=== PATIENT | female | born 1990 | race American Indian/Alaskan Native ===

== ENCOUNTER → 2018-04-26 18:19 | Outpatient (CLI) | payer BC, SELFPAY | PROVIDERS: Visit Provider Physician Assistant | DX: R30.0 Dysuria (principal) | CPT/HCPCS: 87077; 87086; 87186 ==

== ENCOUNTER → 2019-03-23 10:23 | Outpatient (CLI) | payer BC, SELFPAY ==
[2019-03-23 10:28] LABS: Bacteria Urine None Seen; RBC Urine None Seen (0-5/HPF)
[2019-03-23 11:36] LABS: Hematocrit 40.5 % (36-46); Hemoglobin 13.2 g/dL (12.0-16.0); Mean Corpuscular HGB Conc 32.7 % (30-36); Mean Corpuscular Hemoglobin 31.6 PG (26-34); Mean Corpuscular Volume 96.7 fL (80-100); Platelet Count 190 X10^3/uL (150-400); Red Blood Cell Count 4.19 X10^6/uL (4.0-5.2); White Blood Cell Count 3.7 X10^3/uL (4.5-11.0)
[2019-03-23 11:52] LABS: Alanine Aminotransferase 16 IU/L (9-52); Albumin 4.2 g/dL (3.5-5.0); Albumin Globulin Ratio 1.5 (1.0-2.8); Alkaline Phosphatase 35 U/L (38-126); Aspartate Aminotransferase 20 IU/L (14-36); BUN Creatinine Ratio 17.1 (6-22); Bilirubin Total 0.4 mg/dL (0.2-1.3); Blood Urea Nitrogen 12 mg/dL (7-17); Calcium 9.1 mg/dL (8.4-10.2); Carbon Dioxide 26 mmol/L (22-32); Chloride 103 mmol/L (98-107); Cholesterol 172 mg/dL (140-199); Estimated Glomerular Filt Rate > 60.0 mL/min (>60); Globulin 2.8 g/dL (1.7-4.1); Glucose 76 mg/dL (70-100); HDL Cholesterol 53 mg/dL (40-60); HEMOLYSIS < 15 (0-50); LDL Cholesterol Calculated 110 mg/dL (<100); Potassium 3.9 mmol/L (3.4-5.1); Sodium 137 mmol/L (137-145); Triglycerides 43 mg/dL (35-150)
[2019-03-23 12:27] LABS: TSH w/ Reflex to FT4 0.78 uIU/mL (0.47-4.68)
[2019-03-23 12:30] LABS: Appearance Urine UA CLEAR; Bilirubin Urine UA NEGATIVE (NEGATIVE); Color Urine UA YELLOW; Glucose Urine UA NEGATIVE (Negative); Ketones Urine UA NEGATIVE (NEGATIVE); Leukocyte Esterase Urine UA NEGATIVE (NEGATIVE); Nitrite Urine UA NEGATIVE (Negative); Occult Blood Urine UA NEGATIVE (Negative); Protein Urine UA NEGATIVE (Negative); Urobilinogen Urine UA 0.2 E.U./dL (0.2)
[2019-03-23 14:30] LABS: Squamous Epithelial Cell Urine 5-10 /HPF (0-5/HPF); WBC Urine 0-1/HPF (0-5/HPF)
== END ==
PROVIDERS: PCP Nurse Practitioner Family; Visit Provider Nurse Practitioner Family
DX: Z00.00 Encounter for general adult medical examination without abnormal findings (principal); N97.9 Female infertility, unspecified; Z13.6 Encounter for screening for cardiovascular disorders
CPT/HCPCS: 36415; 80053; 80061; 81001; 84443; 85027

== ENCOUNTER → 2019-05-03 08:29 | Outpatient (CLI) | payer BC, SELFPAY ==
[2019-05-03 12:22] LABS: Semen 30 min. Liquification? Yes; Sperm Count 30 X10^6mL
[2019-05-03 12:23] LABS: % Recovery 0.02 %; Final Volume 0.5 mL
== END ==
PROVIDERS: PCP Nurse Practitioner Family; Visit Provider Obstetrics & Gynecology
DX: N97.9 Female infertility, unspecified (principal)
CPT/HCPCS: 89261

== ENCOUNTER → 2019-06-21 11:58 | Outpatient (CLI) | payer BC, SELFPAY ==
[2019-07-04 10:24] LABS: Final Volume 0.5 mL; Initial Volume 5 mL; Semen 30 min. Liquification? Yes
== END ==
PROVIDERS: Obstetrics & Gynecology; PCP Nurse Practitioner Family; Visit Provider Nurse Practitioner Family
DX: N89.8 Other specified noninflammatory disorders of vagina (principal)
CPT/HCPCS: 58323; 87210

== ENCOUNTER → 2019-10-24 10:16 | Outpatient (CLI) | payer BC, SELFPAY ==
--- NOTE | 2019-10-24 10:17 | DI.RAD.S_ITS ---
PROCEDURE: HL HYSTEROSAPINGOGRAPHY INDICATIONS: Secondary infertility. COMPARISON: None. FINDINGS: Patient had a documented negative test prior to the study. Following speculum insertion, a balloon-tip catheter was inserted into the cervical canal, and secured by inflating the balloon. Contrast was then injected into the endometrial canal. Uterus: The uterine cavity appears grossly normal in size and morphology. Fallopian tubes: The right fallopian tube fills with contrast, and appear normal in caliber and morphology. There is ready dispersion of contrast into the peritoneal cavity. However, the left fallopian tube is not well-visualized. On early filling images, there is possible visualization of the isthmus and ampullary segment however seen on one view only. There is no definite intraperitoneal free spillage. There is venous extravasation. IMPRESSION: Patent right fallopian tube. Obstructed left fallopian tube Dictated by: Nato Weir M.D. on 10/24/2019 at 12:03 Approved by: Ntao Weir M.D. on 10/24/2019 at 12:07
== END ==
PROVIDERS: PCP Nurse Practitioner Family; Referring Provider Nurse Practitioner Family; Visit Provider Obstetrics & Gynecology
DX: N97.1 Female infertility of tubal origin (principal)
CPT/HCPCS: 58340; 74740

== ENCOUNTER → 2019-11-09 13:44 | Outpatient (CLI) | payer BC, SELFPAY ==
--- NOTE | 2019-11-09 13:45 | DI.US.S_ITS ---
PROCEDURE: US PELVIC COMPLETE INDICATIONS: EVALULATION FOR NORMAL UTERUS AND REPRODUCTIVE ORGANS TECHNIQUE: Real-time scanning was performed of the pelvic organs, with image documentation. Additional endovaginal scanning was necessary due to incomplete visualization of the adnexal and endometrial structures by transabdominal scanning. COMPARISON: [facility], US, US PELVIC COMPLETE, 06/30/2019, 15:52. FINDINGS: Transabdominal scanning: Limited scanning through the kidneys shows no hydronephrosis. No pathologic free abdominal or pelvic fluid. Endovaginal scanning: Uterus: Uterus is normal in size at 5.8 x 4.2 x 5.4 cm. The endometrium measures 10 mm in combined thickness. Ovaries: The right ovary measures 2.3 x 3.1 x 1.9 cm. The left ovary measures 3 x 3.2 x 3.7 cm. The ovaries have a normal sonographic appearance. No adnexal masses are seen. IMPRESSION: Normal pelvic ultrasound. Normal appearing ovaries, without findings suggestive of polycystic ovarian syndrome. Dictated by: Eben Loya M.D. on 11/09/2019 at 14:43 Approved by: Eben Loya M.D. on 11/09/2019 at 14:45
--- NOTE | 2019-11-09 13:45 | DI.US.S_ITS ---
ULTRASOUND OF RIGHT BREAST AND AXILLA: 11/09/2019 CLINICAL: Right breast pain at tail of breast towards axilla. No prior exams were available for comparison. Real-time ultrasound of the right breast axilla was performed. Cordoba scale images of the real-time examination were reviewed. No significant abnormalities were seen sonographically in the right breast or the right axilla. The area of patient directed palpable concern correlated with the margin of her breast implant and area of folds from her breast implant. No suspicious mass, disturbed parenchymal echotexture, or abnormal fluid collections. IMPRESSION: NEGATIVE There is no sonographic evidence of malignancy. There is no abnormality seen in the right breast to correspond with the area of clinical concern and palpable abnormality in the upper outer quadrant and right axillary tail, however, clinical followup is recommended for persistent or worsening symptoms. This exam was interpreted at Station ID: [id number]. Electronically Signed By: Wisam Del Valle M.D. aty/:11/09/2019 14:55:38 Ultrasound BI-RADS: 1 Negative
== END ==
PROVIDERS: PCP Nurse Practitioner Family; Referring Provider Obstetrics & Gynecology; Visit Provider Obstetrics & Gynecology
DX: N97.1 Female infertility of tubal origin (principal); M79.621 Pain in right upper arm; N64.4 Mastodynia; R22.31 Localized swelling, mass and lump, right upper limb
CPT/HCPCS: 76642; 76856

== ENCOUNTER → 2024-02-03 10:37 | Outpatient (CLI) | payer BC, SELFPAY ==
[2024-02-03 11:44] LABS: Add Manual Diff / Slide Review NO; Basophils Absolute Auto 0 /uL (0-100); Basophils Percent Auto 0.4 % (0-2); Eosinophils Absolute Auto 100 /uL (0-450); Hematocrit 35.7 % (36-46); Hemoglobin 12.3 g/dL (12.0-16.0); Lymphocytes Absolute Auto 1400 /uL (1100-4500); Lymphocytes Percent Auto 18.9 % (25-40); Mean Corpuscular HGB Conc 34.3 % (30-36); Mean Corpuscular Hemoglobin 32.1 PG (26-34); Mean Corpuscular Volume 93.5 fL (80-100); Monocytes Absolute Auto 400 /uL (0-900); Monocytes Percent Auto 5.4 % (3-14); Neutrophils Absolute Auto 5300 /uL (1500-7000); Neutrophils Percent Auto 73.3 % (50-75); Platelet Count 219 X10^3/uL (150-400); Red Blood Cell Count 3.82 X10^6/uL (4.0-5.2); Red Cell Distribution Width 12.7 % (11.6-14.8); White Blood Cell Count 7.3 X10^3/uL (4.5-11.0)
[2024-02-03 13:38] LABS: Appearance Urine UA CLEAR; Bilirubin Urine UA NEGATIVE (NEGATIVE); Color Urine UA YELLOW; Glucose Urine UA NEGATIVE (Negative); Ketones Urine UA NEGATIVE (NEGATIVE); Leukocyte Esterase Urine UA NEGATIVE (NEGATIVE); Nitrite Urine UA NEGATIVE (Negative); Occult Blood Urine UA NEGATIVE (Negative); Protein Urine UA NEGATIVE (Negative); Urobilinogen Urine UA 0.2 E.U./dL (0.2)
[2024-02-03 17:27] LABS: Hepatitis B Surface Antigen NEGATIVE s/c (NEGATIVE); Rubella Antibody IgG 77.4 IU/mL (>15)
[2024-02-03 17:46] LABS: HIV 1 & 2 Ab/Ag 4th Gen Combo NEGATIVE (NEGATIVE); Hep C Virus Ab w/Reflex Quant NEGATIVE s/c (NEGATIVE)
[2024-02-04 04:12] LABS: RPR Screen Non Reactive (Non Reactive)
[2024-02-04 08:36] LABS: Varicella IgG Antibody 348 index (Immune >165)
== END ==
LOC: LAB 10:38
PROVIDERS: PCP Student in an Organized Health Care Education/Training Program; Referring Provider Student in an Organized Health Care Education/Training Program; Visit Provider Student in an Organized Health Care Education/Training Program
DX: O09.819 Supervision of pregnancy resulting from assisted reproductive technology, unspecified trimester (principal); E88.819 Insulin resistance, unspecified
CPT/HCPCS: 36415; 80055; 81003; 83036; 86787; 86803; 86850; 86900; 86901; 87086; 87389

== ENCOUNTER → 2024-02-10 15:00 | Outpatient (CLI) | payer BC, SELFPAY ==
[2024-02-10 16:08] LABS: Natera Collection Specimen Collected
== END ==
PROVIDERS: PCP Student in an Organized Health Care Education/Training Program; Referring Provider Student in an Organized Health Care Education/Training Program; Visit Provider Student in an Organized Health Care Education/Training Program
DX: Z34.81 Encounter for supervision of other normal pregnancy, first trimester (principal)
CPT/HCPCS: 36415

== ENCOUNTER → 2024-05-24 09:15 | Outpatient (CLI) | payer BC, SELFPAY ==
[2024-05-24 11:29] LABS: Hematocrit 31.9 % (36-46); Hemoglobin 10.9 g/dL (12.0-16.0)
[2024-05-24 11:58] LABS: GTT (PREG) 1 Hour PP 50gm Dose 134 mg/dL (76-139)
== END ==
PROVIDERS: PCP Student in an Organized Health Care Education/Training Program; Referring Provider Student in an Organized Health Care Education/Training Program; Visit Provider Student in an Organized Health Care Education/Training Program
DX: Z34.90 Encounter for supervision of normal pregnancy, unspecified, unspecified trimester (principal); Z3A.24 24 weeks gestation of pregnancy
CPT/HCPCS: 36415; 82950; 85014; 85018

== ENCOUNTER 2024-06-22 09:52 | Observation (INO) | payer BC, SELFPAY ==
--- NOTE | 2024-06-22 11:13 | DI.US.S_ITS ---
PROCEDURE: US OB LIMITED INDICATIONS: FALL. RIGHT ABDOMEN DISCOMFORT. OUTSIDE/PRIOR DATING DATA: The calculations are made using the working CHRIS of 08/31/2024. TECHNIQUE: Real-time scanning was performed of the fetus, with image documentation. Endovaginal scanning: Not performed COMPARISON: None. FINDINGS: A single living intrauterine gestation is present. Presentation: Vertex. Placenta: Placental position is anterior, without previa. Placental Quiroz is present. No evidence of abruption. Amniotic fluid index: 22.2 cm, normal range is 5-24 cm. No abnormal debris within the amniotic fluid. Single deepest vertical pocket is 5.6 cm. heart rate: 144 beats per minute. Maternal cervical canal: 6.2 cm long. Normal lower limit is 2.5 cm. Clinically estimated gestational age: 30 weeks 0 days IMPRESSION: Single living intrauterine at 30 weeks 0 days, CHRIS of 08/31/2024. No evidence of placental abruption. Cervix is long and closed. Dictated by: Jaxson Branett M.D. on 06/22/2024 at 12:25 Approved by: Jaxson Barnett M.D. on 06/22/2024 at 12:27
[2024-06-22] MEDS: LACTATED RINGERS 1,000 ML 1000 ML IV (12:55)
--- NOTE | 2024-06-22 13:21 | PM.OBTRLD ---
Visit Information Visit Information Date of evaluation: 06/22/24 Primary OB Provider: Shanice Miguel Reason for Evaluation: Yes other Comments/Additional reasons for admission: Patient is here after fall off of bed onto abdomen at 4am this morning. She has right sided abdominal discomfort and low uterine cramping. No LOF, no bleeding. Good movement. Vital Signs Vital Signs: BP 118/76; Pulse 92 PFSH Medical History (Updated 01/31/24 @ 15:37 by Shanice Miguel MD) Sinusitis Infertility Surgical History (Updated 01/25/24 @ 13:09 by Diane Moody, RN) History of laparoscopy (~04/2021) History of breast augmentation Status post myringotomy with insertion of tube Status post adenoidectomy Family History (Updated 01/25/24 @ 13:15 by Diane Moody, RN) Mother Uterine fibroid History of hysterectomy Grandmother Uterine fibroid History of hysterectomy Hypertension Grandfather Hypertension Bladder cancer Smoker Family/Other History of thyroidectomy Grandfather Alcoholism Aunt Cancer Uncle Hypoglycemia Sister Hypertension Obesity Social History marital status: number of children: 1 household members: spouse and children lives independently: Yes caregiver/support person: No housing: house pets and animals: Yes (dog) education level: college (Bachelor's degree) occupational status: employed (self-employed, 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) current occupational exposures/hazards: No special debra needs: No travel history: recent (going to [place] in a couple weeks) seatbelt use: always helmet use: Yes water heater temp set < 120 deg: Yes working smoke detector in home: Yes fire extinguisher in home: Yes carbon monox detector in home: Yes firearms in home: Yes firearms unloaded and locked: Yes do you feel safe at home: Yes Smoking Status: Never smoker second hand exposure: No alcohol intake: former (0-3/week when not ) substance use type: does not use during the past year weight has: increased > 10 lbs (hormone therapy with IVF) well-balanced diet: daily or most days daily servings fruits/ve or more times/day caffeine: No Type(s) of exercise: walking Review of Systems Review of Systems ROS: Yes All systems reviewed with the patient and are negative except as otherwise documented Evaluation Evaluation Baseline heart rate: 135 Variability: Average (6-10) monitor accelerations: Present Monitor Decelerations: Late (one noted with supine positioning ) Uterine Contraction Intensity: Mild Category of Tracing: Reactive Diagnosis, Plan/Disposition Plan/Disposition Plan: Patient here with direct abdominal trauma after falling on the floor. US without placental abruption. Cervix long and closed, measured at 6.2cm. Mild uterine irritability resolved with 1L LR fluid bolus. -NST reactive and cat 1 with 4 hours of monitoring, safe for discharge home -return precautions given OB Disposition: home
== END 2024-06-22 14:00 | disposition home or self-care (01) ==
PROVIDERS: Admitting Provider Student in an Organized Health Care Education/Training Program; PCP Student in an Organized Health Care Education/Training Program; Referring Provider Student in an Organized Health Care Education/Training Program; Visit Provider Student in an Organized Health Care Education/Training Program
DX: O26.893 Other specified pregnancy related conditions, third trimester (principal); R10.9 Unspecified abdominal pain; Z3A.30 30 weeks gestation of pregnancy; W06.XXXA Fall from bed, initial encounter
CPT/HCPCS: 59025; 59050; 76815; 96360; G0378; G0379

== ENCOUNTER 2024-08-04 11:33 | Outpatient (CLI) | payer BC, SELFPAY | END 2024-08-04 13:45 | disposition home or self-care (01) | LOC: LABOR 12:43 → OB 08-07 06:27 | PROVIDERS: PCP Student in an Organized Health Care Education/Training Program; Referring Provider Student in an Organized Health Care Education/Training Program; Visit Provider Student in an Organized Health Care Education/Training Program | DX: O09.813 Supervision of pregnancy resulting from assisted reproductive technology, third trimester (principal); O26.893 Other specified pregnancy related conditions, third trimester; E88.819 Insulin resistance, unspecified; Z3A.36 36 weeks gestation of pregnancy | CPT/HCPCS: 36415; 59050; 96360; G0378; G0379 ==

== ENCOUNTER → 2024-08-08 10:12 | Outpatient (CLI) | payer BC, SELFPAY ==
[2024-08-09 15:59] LABS: Strep Grp B PCR NEG for Grp B Strep
== END ==
PROVIDERS: PCP Student in an Organized Health Care Education/Training Program; Visit Provider Student in an Organized Health Care Education/Training Program
DX: Z34.93 Encounter for supervision of normal pregnancy, unspecified, third trimester (principal); Z3A.36 36 weeks gestation of pregnancy
CPT/HCPCS: 87653

== ENCOUNTER 2024-08-11 09:20 | Outpatient (CLI) | payer BC, SELFPAY | END 2024-08-11 10:10 | disposition home or self-care (01) | LOC: LABOR 09:57 → OB 08-15 08:32 | PROVIDERS: PCP Student in an Organized Health Care Education/Training Program; Referring Provider Student in an Organized Health Care Education/Training Program; Visit Provider Student in an Organized Health Care Education/Training Program | DX: O09.813 Supervision of pregnancy resulting from assisted reproductive technology, third trimester (principal); O26.893 Other specified pregnancy related conditions, third trimester; E88.819 Insulin resistance, unspecified; Z3A.37 37 weeks gestation of pregnancy | CPT/HCPCS: 59025; G0378; G0379 ==

== ENCOUNTER → 2024-08-14 10:18 | Outpatient (CLI) | payer BC, SELFPAY | PROVIDERS: PCP Student in an Organized Health Care Education/Training Program; Visit Provider Student in an Organized Health Care Education/Training Program | DX: B37.9 Candidiasis, unspecified (principal) | CPT/HCPCS: 87210 ==

== ENCOUNTER 2024-08-18 12:57 | Outpatient (CLI) | payer BC, SELFPAY | END 2024-08-18 13:32 | disposition home or self-care (01) | LOC: LABOR 13:22 → OB 08-21 06:20 | PROVIDERS: PCP Student in an Organized Health Care Education/Training Program; Referring Provider Student in an Organized Health Care Education/Training Program; Visit Provider Student in an Organized Health Care Education/Training Program | DX: O09.813 Supervision of pregnancy resulting from assisted reproductive technology, third trimester (principal); O26.893 Other specified pregnancy related conditions, third trimester; E88.819 Insulin resistance, unspecified; Z3A.38 38 weeks gestation of pregnancy | CPT/HCPCS: 59025; G0378; G0379 ==

== ENCOUNTER 2024-08-24 07:43 | Inpatient (IN) | payer BC, SELFPAY ==
--- NOTE | 2024-08-24 07:54 | PM.OBHP.IH.1 ---
OB HPI Date/Time Date of admission: 08/24/24 History of Present Condition Chief complaint: Induction CHRIS Calculator Estimated Delivery Date Method Current WG Current Estimate 08/31/24 Conception 39w 0d : 2 Para: 1 Narrative: This is a 33 yo at 39w0d here for IOL for IVF . uncomplicated. care: good care Dating criteria OB: LMP confirmed by 1st trimester US Ultrasounds: normal 1st trimester US and normal mid trimester US Obstetrical complications: none Medical complications OB: none Indications Indication for induction OB: other (IVF ) Preadmission Labs Last OB Lab Results: Blood Type O Positive 08/24/24 08:20 Antibody Screen Negative 08/24/24 08:20 Hct 36.8 % (36-46) 08/24/24 08:20 Hgb 12.3 g/dL (12.0-16.0) 08/24/24 08:20 Hep Bs Antigen Negative s/c (NEGATIVE) 02/03/24 11:13 Hepatitis C Antibody Negative s/c (NEGATIVE) 02/03/24 11:13 Rubella Antibody 77.4 IU/mL (>15) 02/03/24 11:13 VZV IgG Antibody 348 index (Immune >165) 02/03/24 11:13 Glucose 1 Hr 50 gm 134 mg/dL (76-139) 05/24/24 10:58 Hemoglobin A1c 5.0 % (4.0-6.0) 02/03/24 11:13 Group B Strep (PCR) Neg for grp b strep 08/08/24 10:30 Glucose Tolerance Testin hr Genetic Screens: Cell-free DNA: Normal Prior (ies) Past Pregnancies Del. Date GA/Weeks Labor Lgth Wt Sex Route Outcome Anesthesia Place Delv Breastfeed Preg Comp Name 06/27/16 38+ 22 7 lb 5 oz Female vaginal live - full term epidural IH 18 months none [facility] Evaluation Evaluation Baseline heart rate: 145 Variability: Average (6-10) monitor accelerations: Present Monitor Decelerations: Absent Dilation (cm): 1 Effacement (%): 50 Dilation: 1-2 cm Effacement: 40-50% station: -3 Position of cervix: posterior Consistency: soft Chauhan score: 4 PFSH Medical History (Updated 08/22/24 @ 10:06 by Shanice Miguel MD) Sinusitis Infertility Surgical History (Updated 01/25/24 @ 13:09 by Diane Moody, RN) History of laparoscopy (~04/2021) History of breast augmentation Status post myringotomy with insertion of tube Status post adenoidectomy Family History (Updated 01/25/24 @ 13:15 by Diane Moody, RN) Mother Uterine fibroid History of hysterectomy Grandmother Uterine fibroid History of hysterectomy Hypertension Grandfather Hypertension Bladder cancer Smoker Family/Other History of thyroidectomy Grandfather Alcoholism Aunt Cancer Uncle Hypoglycemia Sister Hypertension Obesity Social History marital status: number of children: 1 household members: spouse and children lives independently: Yes caregiver/support person: No housing: house pets and animals: Yes (dog) education level: college (Bachelor's degree) occupational status: employed (self-employed, 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) current occupational exposures/hazards: No special debra needs: No travel history: recent (going to [place] in a couple weeks) seatbelt use: always helmet use: Yes water heater temp set < 120 deg: Yes working smoke detector in home: Yes fire extinguisher in home: Yes carbon monox detector in home: Yes firearms in home: Yes firearms unloaded and locked: Yes do you feel safe at home: Yes Smoking Status: Never smoker second hand exposure: No alcohol intake: former (0-3/week when not ) substance use type: does not use during the past year weight has: increased > 10 lbs (hormone therapy with IVF) well-balanced diet: daily or most days daily servings fruits/ve or more times/day caffeine: No Type(s) of exercise: walking Meds Home Medications and Allergies Home Medications Medication Instructions Recorded Confirmed Type metformin 500 mg tablet 500 mg PO BID 04/22/21 08/22/24 History vitamin-ferrous sulfate tab PO 01/25/24 08/22/24 History 27 mg iron-folic acid 0.8 mg tablet RSVPreF3 antigen-AS01E 0.5 ml IM ONCE #1 ea 07/28/24 08/22/24 Rx adjuvant(PF) 120 mcg/0.5 mL IM suspension, kit albuterol sulfate 90 mcg/actuation 2 puff inhalation Q6H PRN 08/04/24 08/22/24 Rx aerosol inhaler shortness of breath or wheezing #8.5 grams erythromycin 5 mg/gram (0.5 %) eye 0.5 inch EYE-LEFT BID #3.5 grams 08/22/24 08/22/24 Rx ointment Allergies Allergy/AdvReac Type Severity Reaction Status Date / Time No Known Drug Allergies Allergy Unknown Verified 08/22/24 10:00 Assessment and Plan Assessment and Plan Assessment and Plan narrative: 33 yo here at 39w0d for IOL for IVF . SVE /-3 -misoprostol + laurent balloon placed at 9:15 -ongoing induction Time-Based Coding :: 30 minutes spent with patient and on the chart (including review of chart, obtaining history, exam, reviewing outside data, placing orders, documenting exam and treatment plan, and counseling patient) on 08/24.
[2024-08-24] MEDS: LACTATED RINGERS 1,000 ML 100 ML IV ×2 (08:43→18:05)
[2024-08-24 08:51] LABS: Add Manual Diff / Slide Review NO; Basophils Absolute Auto 100 /uL (0-100); Basophils Percent Auto 0.8 % (0-2); Eosinophils Absolute Auto 100 /uL (0-450); Eosinophils Percent Auto 0.9 % (2-4); Hematocrit 36.8 % (36-46); Hemoglobin 12.3 g/dL (12.0-16.0); Lymphocytes Absolute Auto 1800 /uL (1100-4500); Lymphocytes Percent Auto 19.9 % (25-40); Mean Corpuscular HGB Conc 33.5 % (30-36); Mean Corpuscular Hemoglobin 32.8 PG (26-34); Mean Corpuscular Volume 98.2 fL (80-100); Monocytes Absolute Auto 700 /uL (0-900); Monocytes Percent Auto 7.6 % (3-14); Neutrophils Absolute Auto 6300 /uL (1500-7000); Neutrophils Percent Auto 70.8 % (50-75); Platelet Count 187 X10^3/uL (150-400); Red Blood Cell Count 3.75 X10^6/uL (4.0-5.2); Red Cell Distribution Width 13.6 % (11.6-14.8); White Blood Cell Count 8.8 X10^3/uL (4.5-11.0)
[2024-08-24] MEDS: miSOPROStoL 25 MCG TABLET VAG (09:15)
[2024-08-24 10:09] VITALS: O2SAT 98
[2024-08-24 10:10] VITALS: BP 133/77
[2024-08-24] MEDS: OXYTOCIN PREMIX 30 UNIT/500 ML PLAST..BAG IV (13:37)
--- NOTE | 2024-08-24 13:48 | PM.OBPNLAB ---
Date/Time Date Patient Seen: 08/24/24 Time Patient Seen: 12:15 Pain Control Pain control: tolerating well Pelvic Exam Dilation (cm): 2 Effacement (%): 50 station: -3 Contractions Contractions on admission: regular Monitor mode: External Pitocin rate (mU/min): 2 Status status: Category l Heart Rate Baseline: 145 Monitor Accelerations: Present Monitor Decelerations: Absent Monitor Variability: Moderate Assessment and Plan Assessment: induction ongoing Plan: continuous present management Comments: 33 yo at 39w0d here for IOL for IVF preg. -s/p 1 dose vaginal cytotec 25 mcg; laurent balloon -start pitocin -anticipate
--- NOTE | 2024-08-24 17:24 | PM.OBPNLAB ---
Date/Time Date Patient Seen: 08/24/24 Pain Control Pain control: tolerating well Pelvic Exam Dilation (cm): 4 Effacement (%): 70 station: -2 Comments: AROM Contractions Monitor mode: External Pitocin rate (mU/min): 4 Contraction pattern: Regular Contraction intensity: Moderate Status status: Category l Heart Rate Baseline: 150 Monitor Accelerations: Present Monitor Decelerations: Absent Monitor Variability: Moderate Assessment and Plan Assessment: induction ongoing Plan: continuous present management Comments: -continue pitocin -AROM at this time with clear fluid -anticipate SVE
--- NOTE | 2024-08-24 18:59 | PM.AN.REGBLK ---
Regional Block Pre-procedure Procedure: Continuous Lumbar Epidural for L&D (with dural puncture) Attending OB provider: Shanice Miguel PMH/ROS narrative: 33yo at 39w0d in labor requesting epidural. See pre-anesthesia evaluation for further details. ASA Class: II Labs: Hct 36.8 % (36-46) 08/24/24 08:20 Plt Count 187 X10^3/uL (150-400) 08/24/24 08:20 Medications: Current Medications Generic Name Dose Route Start Last Admin Trade Name Freq PRN Reason Stop Dose Admin Calcium Carbonate 1,000 mg 08/24/24 07:52 Calcium Carbonate 500 Mg Tab PO Q2HR PRN Dyspepsia Carboprost Tromethamine 250 mcg 08/24/24 07:51 Carboprost 250 Mcg/Ml Ampul IM Q90M PRN Bleeding Diphenhydramine HCl 25 mg 08/24/24 18:57 Diphenhydramine 50 Mg/Ml Vial IV Q10M PRN Pruritis Ephedrine Sulfate 10 mg 08/24/24 18:57 Ephedrine 50 Mg/Ml Vial IV Q5M PRN Blood pressure decrease more than 20% of baseline. Fentanyl 50 mcg 08/24/24 07:52 Fentanyl 100 Mcg/2 Ml Inj IV Q1H PRN Pain, Moderate (4-6) Oxytocin/Lactated Ringer's 30 unit in 500 mls @ 200 mls/hr 08/24/24 07:51 Oxytocin Premix IV CONT PRN Bleeding Protocol Tranexamic Acid 1,000 mg/ 100 mls @ 600 mls/hr 08/24/24 07:51 Sodium Chloride IV NOW PRN Bleeding Oxytocin/Lactated Ringer's 30 unit in 500 mls @ 2 mls/hr 08/24/24 08:00 08/24/24 13:37 Oxytocin Premix IV 2 milliunit/min TITRATE MELINDA 2 mls/hr Administration Protocol 2 MILLIUNIT/MIN FENT 2MCG/ML BUPIV 0.125% EPI 200 mcg in 100 mls @ 6 mls/hr 08/24/24 19:00 Fentanyl/Bupiv/Ns 2mcg/Ml - 0.125% EPIDURAL CONT MELINDA Lidocaine HCl 20 ml 08/24/24 07:51 Lidocaine 1% 20 Ml INJ INTRA-OP PRN Post Delivery Methylergonovine Maleate 0.2 mg 08/24/24 07:51 Methylergonovine 0.2 Mg Tablet PO Q6HR PRN Heavy Bleeding Methylergonovine Maleate 0.2 mg 08/24/24 07:51 Methylergonovine 0.2 Mg/Ml Vial IM NOW PRN Bleeding Mineral Oil 30 ml 08/24/24 07:51 Mineral Oil 30 Ml Udc TOP PRN PRN Version Misoprostol 800 mcg 08/24/24 07:51 Misoprostol 200 Mcg Tablet MA NOW PRN Bleeding Misoprostol 400 mcg 08/24/24 07:51 Misoprostol 200 Mcg Tablet SL NOW PRN Bleeding Misoprostol 25 mcg 08/24/24 07:52 08/24/24 09:15 Misoprostol 25 Mcg Tablet VAG 25 mcg Q4H PRN Administration cervical ripening Nalbuphine HCl 2.5 mg 08/24/24 18:57 Nalbuphine 20 Mg/Ml Ampul IV Q10M PRN Pruritis Naloxone HCl 0.2 mg 08/24/24 07:51 Naloxone 0.4 Mg/Ml Vial IV Q2MIN PRN Opiate Reversal Ondansetron HCl 4 mg 08/24/24 07:52 Ondansetron 4 Mg/2 Ml Inj IV Q4HR PRN Nausea And Vomiting Oxytocin 10 unit 08/24/24 07:51 Oxytocin 10 Unit/Ml Vial IM NOW PRN Bleeding Allergies: Allergies Allergy/AdvReac Type Severity Reaction Status Date / Time No Known Drug Allergies Allergy Unknown Verified 08/22/24 10:00 Procedure Insertion date: 08/24/24 Insertion time: 18:36 Prep/Local: 1% lidocaine (Chloraprep) Interspace: L3-4 Patient position: sitting Needle: 18 gauge Sagetead (27g 5 Pencan needle for dural puncture ) Loss of resistance with: saline CASANDRA at (cm): 7 Catheter placed at SKIN (cm): 14 Catheter in SPACE (cm): 7 Insertion: No CSF, No Blood, Yes Paresthesia with insertion, No Paresthesia with injection and No Test dose reaction Initial Medications TEST DOSE time: 18:39 TEST DOSE: 1.5% lidocaine with epinephrine 1:200k (mL): 3 BOLUS DOSE time: 18:40 BOLUS DOSE (mL): 6 BOLUS DOSE med: other (2 ml same as test dose plus 4 ml lido 2% PF) Infusion INFUSION: 0.125% bupivacaine and with fentanyl 2 mcg/mL Initial rate (mL/hr): 8 Subsequent interventions: Pump started at 18:55. Pt rated pre-epidural pain 10/10, post-epidural pain 0/10, able to move BLE. Post-procedure Anesthesia date START: 08/24/24 Anesthesia time START: 18:20 Anesthesia date END: 08/24/24 Anesthesia time END: 21:42 Post-procedure Anesthesia Assessment: Yes CV function: HR/BP stable, Yes Resp function: RR/sat/airway adequate, Yes Post-op hydration adequate, Yes Pain control adequate, Yes Nausea & vomiting absent, Yes Temperature > 36 C, Yes Mental status appropriate and No Anesthesia complications
--- NOTE | 2024-08-24 22:06 | PM.OBPRVD ---
Events: Other (IVF ) Labor & Delivery Delivery date: 08/24/24 Delivery Time: 21:42 Intrapartal Events: None Cervical ripening method: per Friend bulb protocol (with vag miso) Induction method: per pitocin protocol (+AROM) Route of delivery: L&D Laceration Description: Perineal - 1st Degree and Labial Delivery repair: vicryl Estimated blood loss (mL): 200 Anesthesia Type: Epidural Narrative: Patient was found to be complete and pushed effectively over 2 contractions. delivered head in the DONTE position. With additional push, body delivered atraumatically over an intact perineum. Cord clamping was delayed 5 minutes. Cord blood was obtained for maternal O pos status. Placenta delivered with external fundal massage. Pitocin bolus was started. Bleeding was minimal. There was a 1st degree perineal and a left labial tear that were repaired with suture. Mom and baby recovering well. Plan for aftercare: Routine care
[2024-08-25] MEDS: ACETAMINOPHEN 325 MG TABLET 650 MG PO ×3 (01:53→16:19)
[2024-08-25] MEDS: LANOLIN OINT 7 GM 1 APPLIC TOP (01:54)
[2024-08-25] MEDS: WITCH HAZEL/GLYCERIN PADS 1 EACH TOP (01:54)
[2024-08-25] MEDS: DERMOPLAST SPRAY 20% 60 ML 1 SPRAY TOP (01:55)
[2024-08-25] MEDS: IBUPROFEN 600 MG TABLET PO ×2 (07:24→13:47)
--- NOTE | 2024-08-25 07:56 | PM.OBDS.1 ---
Discharge Providers Provider Date of admission: 08/24/24 07:43 Discharge Date: 08/25/24 Primary care physician: Shanice Miguel MD Consults: 08/24/24 07:51 Consult to Anesthesiology Urgent Comment: Consulting Provider: Anesthesiologist Reason for consultation: Epidural 08/25/24 22:12 Consult to Dermatologist Managing Partner Routine Comment: Discharge provider: Shanice Miguel MD Summary Hospital Course Date Patient Seen: 08/25/24 Time Patient Seen: 07:45 Diagnoses: Term Hospital Course: This is a 33 yo F G2 now P2 who had following IOL for IVF. Recovering well from delivery. Mild cramping with . Bleeding controlled. Peripartum Data Delivery Method: Natural Vaginal Laceration Description: Vaginal - 1st Degree and Labial complications: none Status at Discharge Cognitive/behavioral status at discharge: oriented Functional status at discharge: independent ambulation Overall status at discharge: patient is back to baseline Time Spent with Patient Time attestation: Total time spent providing and/or coordinating discharge services: Time spent: Greater than 30 minutes Objective Labs 08/24/24 08:20 Labs: Laboratory Results - last 24 hr 08/24/24 08:20 WBC 8.8 RBC 3.75 L Hgb 12.3 Hct 36.8 MCV 98.2 MCH 32.8 MCHC 33.5 RDW 13.6 Plt Count 187 Neut % (Auto) 70.8 Lymph % (Auto) 19.9 L [place] % (Auto) 7.6 Eos % (Auto) 0.9 L Baso % (Auto) 0.8 Neut # (Auto) 6300 Lymph # (Auto) 1800 [place] # (Auto) 700 Eos # (Auto) 100 Baso # (Auto) 100 Blood Type O Positive Antibody Screen Negative Exam Vital Signs (past 8 hours): Oxygen Delivery Method Room Air Narrative Exam Narrative: NAD, resting comfortably in bed. Discharge Plan Discharge Plan Patient Disposition: Home Discharge orders & Medications Prescriptions: New acetaminophen 325 mg Tablet 650 mg PO Q6HR PRN (Reason: Pain, Mild (1-3)) 14 Days Qty: 60 0RF ibuprofen 600 mg Tablet 600 mg PO Q6HR PRN (Reason: Pain, Mild (1-3)) 14 Days Qty: 60 0RF polyethylene glycol 3350 [Miralax] 17 gram powder in packet 17 g PO DAILY Qty: 30 0RF Continued metformin 500 mg tablet 500 mg PO BID erythromycin 5 mg/gram (0.5 %) ointment 0.5 inch EYE-LEFT BID Qty: 3.5 0RF albuterol sulfate 90 mcg/actuation HFA aerosol inhaler 2 puff inhalation Q6H PRN (Reason: shortness of breath or wheezing) Qty: 8.5 0RF RSVPreF3 antigen-AS01E (PF) 120 mcg/0.5 mL suspension for reconstitution 0.5 ml IM ONCE Qty: 1 0RF Rx Instructions: to be given at 35 weeks gestation vit-ferrous sulfat-FA 27 mg iron- 0.8 mg tablet PO Follow up/Referrals: Shanice Miguel MD [Primary Care Provider] - Visit Report/Discharge Packet Stand Alone Forms: Patient Portal/API, Stroke Signs & Symptoms Discharge Data Primary Care Provider: Shanice Miguel Attending Provider: Shanice Miguel Admit Date/Time: 08/24/24 07:43
[2024-08-25] MEDS: ERYTHROMYCIN OPHTH 1 GM OINT 1 APPLIC EYE-LEFT (08:15)
[2024-08-25] MEDS: PRENATAL VIT,CALC/IRON/FOLIC 1 TABLET 1 TAB PO (08:15)
[2024-08-25] MEDS: MAGNESIUM HYDROXIDE 30 ML UDC PO (08:15)
[2024-08-25 08:48] VITALS: BP 123/68; PULSE 78; RESP 18; TEMP 37.2
== END 2024-08-25 17:45 | disposition home or self-care (01) | DRG 807 ==
PROVIDERS: Admitting Provider Student in an Organized Health Care Education/Training Program; PCP Student in an Organized Health Care Education/Training Program; Referring Provider Student in an Organized Health Care Education/Training Program; Visit Provider Student in an Organized Health Care Education/Training Program
DX: O70.0 First degree perineal laceration during delivery (principal); Z37.0 Single live birth; Z3A.39 39 weeks gestation of pregnancy
CPT/HCPCS: 36415; 59050; 85025; 86850; 86900; 86901; G0379; J2590

== ENCOUNTER → 2025-04-27 08:36 | Outpatient (CLI) | payer BC, SELFPAY ==
--- NOTE | 2025-04-27 08:37 | DI.RAD.S_ITS ---
PROCEDURE: XR FOOT RT 2V INDICATIONS: Right foot pain TECHNIQUE: 2 views of the foot were acquired. COMPARISON: None. FINDINGS: Bones: No fractures or dislocations. No suspicious bony lesions. Soft tissues: No tibiotalar joint effusion. Achilles tendon appears normal. IMPRESSION: No acute bony abnormality. Dictated by: Asael Hughes M.D. on 04/27/2025 at 9:27 Approved by: Asael Hughes M.D. on 04/27/2025 at 9:27
[2025-04-27 09:03] LABS: Add Manual Diff / Slide Review NO; Hematocrit 41.0 % (36-46); Hemoglobin 14.0 g/dL (12.0-16.0); Lymphocytes Absolute Auto 2000 /uL (1100-4500); Mean Corpuscular HGB Conc 34.2 % (30-36); Mean Corpuscular Hemoglobin 32.0 PG (26-34); Mean Corpuscular Volume 93.5 fL (80-100); Platelet Count 206 X10^3/uL (150-400)
[2025-04-27 09:28] LABS: Alanine Aminotransferase 19 IU/L (<35); Albumin 4.5 g/dL (3.5-5.0); Albumin Globulin Ratio 1.6 (1.0-2.8); Alkaline Phosphatase 54 U/L (38-126); Blood Urea Nitrogen 15 mg/dL (7-17); Calcium 9.3 mg/dL (8.4-10.2); Carbon Dioxide 23 mmol/L (22-32); Chloride 108 mmol/L (98-107); Estimated Glomerular Filt Rate > 60 mL/min (>60); Globulin 2.8 g/dL (1.7-4.1); Glucose 93 mg/dL (70-99); HEMOLYSIS < 15 (0-50); Potassium 4.5 mmol/L (3.4-5.1); Sodium 141 mmol/L (137-145); Total Protein 7.3 g/dL (6.3-8.2)
[2025-04-27 09:29] LABS: Hemoglobin A1C% w Est Avg Glu 5.2 % (4.0-6.0)
[2025-04-27 09:43] LABS: Free T3, Triiodothyronine Free 4.16 pg/mL (2.77-5.27); Free T4, Direct Thyroxine 0.97 ng/dL (0.78-2.19)
[2025-04-27 09:57] LABS: Thyroid Stimulating Hormone 0.743 uIU/mL (0.47-4.68)
== END ==
PROVIDERS: PCP Student in an Organized Health Care Education/Training Program; Referring Provider Student in an Organized Health Care Education/Training Program; Visit Provider Student in an Organized Health Care Education/Training Program
DX: M79.671 Pain in right foot (principal); R63.5 Abnormal weight gain
CPT/HCPCS: 36415; 73620; 80053; 83036; 84439; 84443; 84481; 85025